=== PATIENT | female | born 1985 | race Caucasian/White ===

== ENCOUNTER 2022-08-13 18:50 | Emergency (ER) | payer OTHER ==
[2022-08-13 19:25] VITALS: BP 103/63; PULSE 66; RESP 18; TEMP 98.1; BMI 25.8
[2022-08-13 19:33] LABS: HCG,QUALITATIVE URINE Negative
== END 2022-08-13 20:18 | disposition home or self-care (01) ==
LOC: FER 18:50
DX: R10.13 Epigastric pain (principal)
CPT/HCPCS: 81003; 81015; 84703; 87086; 99283-25

== ENCOUNTER 2022-09-04 21:28 | Emergency (ER) | payer OTHER ==
[2022-09-04 21:35] VITALS: BP 116/68; PULSE 78; RESP 16; TEMP 98.6; BMI 25.8
[2022-09-04 23:01] LABS: EPITHELIAL CELLS FEW /hpf
== END 2022-09-04 23:41 | disposition home or self-care (01) ==
LOC: FER 21:28
DX: R30.9 Painful micturition, unspecified (principal); R30.0 Dysuria; N89.8 Other specified noninflammatory disorders of vagina
CPT/HCPCS: 81003; 81015; 81025; 84703; 87086; 99283-25

== ENCOUNTER 2023-10-31 20:06 | Emergency (ER) | payer MEDICARE, OTHER ==
[2023-10-31 20:25] VITALS: BP 109/68; PULSE 74; RESP 16; TEMP 98; BMI 27.6
== END 2023-10-31 21:03 | disposition home or self-care (01) ==
LOC: FER 20:06
DX: T74.91XA Unspecified adult maltreatment, confirmed, initial encounter (principal); S20.20XA Contusion of thorax, unspecified, initial encounter; S20.229A Contusion of unspecified back wall of thorax, initial encounter; Y04.8XXA Assault by other bodily force, initial encounter
CPT/HCPCS: 71046-TC-FY; 99283-25

== ENCOUNTER 2023-12-15 18:45 | Emergency (ER) | payer MEDICARE ==
[2023-12-15 18:52] VITALS: BP 100/51; PULSE 67; RESP 18; TEMP 98.2; BMI 26.6
[2023-12-15] MEDS ORDERED: DIPHTH,PERTUSS(ACELL),TET 0.5 ML DISP.SYRIN IM ONE (19:06)
[2023-12-15] MEDS: DIPHTH,PERTUSS(ACELL),TET 0.5 ML DISP.SYRIN IM ONE (19:07)
== END 2023-12-15 19:10 | disposition home or self-care (01) ==
LOC: FER 18:45
PROC: 3E0234Z Introduction of Serum, Toxoid and Vaccine into Muscle, Percutaneous Approach (ICD-10-PCS; principal; 2023-12-15)
DX: S61.001A Unspecified open wound of right thumb without damage to nail, initial encounter (principal); X58.XXXA Exposure to other specified factors, initial encounter; Z23 Encounter for immunization
CPT/HCPCS: 90471; 90715; 99282-25